=== PATIENT | male | born 1950 | race Caucasian/White ===

== ENCOUNTER 2018-06-15 14:54 | Inpatient (IN) | payer MEDICARE, OTHER ==
[2018-06-15 15:57] LABS: % BASOPHILS 0.4 % (0.0-2.0); % EOSINOPHILS 5.4 % (0.0-5.0); % LYMPHOCYTES 15.7 % (20.0-50.0); % MONOCYTES 10.1 % (2.0-10.0); % NEUTROPHILS 68.4 % (40.0-80.0); EOSINOPHILE ABSOLUTE 0.4 Th/cmm (0.1-0.4); HEMATOCRIT 43.8 % (41.0-60); HEMOGLOBIN 14.8 gm/dL (12-16); MEAN CELL VOLUME 91.1 fl (80-99); MEAN CORPUSCULAR HEMOGLOBIN 30.7 pg (27.0-31.0); MEAN CORPUSCULAR HGB CONC 33.7 pg (28.0-36.0); MEAN PLATELET VOLUME 6.9 fl; MONOCYTE ABSOLUTE 0.7 Th/cmm (0.3-1.0); NEUTROPHILE ABSOLUTE 4.4 Th/cmm (1.8-8.0); PLATELET COUNT 259 Th/cmm (150-400); RED BLOOD COUNT 4.81 Mil/cmm (3.80-5.80); RED CELL DISTRIBUTION WIDTH 13.2 % (11.5-20.0); WHITE BLOOD COUNT 6.5 Th/cmm (4.8-10.8)
[2018-06-15 16:14] LABS: INR 0.94 (0.5-1.4); PROTHROMBIN TIME (TEST) 9.8 SECONDS (9.5-11.5)
[2018-06-15 16:17] LABS: ALB/GLOB RATIO 1.1 (1.0-1.8); ALKALINE PHOSPHATASE 72 U/L (34-104); ANION GAP 14.3 (7.0-16.0); BILIRUBIN,TOTAL 1.1 mg/dL (0.3-1.0); BUN - UREA NITROGEN 15 mg/dL (7-25); CALCIUM SERUM 9.5 mg/dL (8.6-10.3); CARBON DIOXIDE 20.5 mEq/L (21.0-31.0); CHLORIDE 105 mEq/L (98-107); GFR AFRICAN-AMERICAN > 60.0 ml/min (>90); GFR NON AFRICAN-AMERICAN > 60.0 ml/min; GLUCOSE 93 mg/dL (70-105); POTASSIUM SERUM 3.8 mEq/L (3.5-5.1); SGOT 12 U/L (13-39); SGPT/ALT 6 U/L (7-52); SODIUM SERUM 136 mEq/L (136-145); TOTAL PROTEIN,SERUM 7.5 gm/dL (6.0-8.3)
[2018-06-15 16:35] LABS: URINE SOURCE CLEAN C
[2018-06-15 16:36] LABS: URINE BILIRUBIN NEGATIVE (NEGATIVE); URINE BLOOD LARGE (NEGATIVE); URINE GLUCOSE (UA) NEGATIVE (NEGATIVE); URINE KETONE NEGATIVE (NEGATIVE); URINE LEUKOCYTE ESTERASE TRACE (NEGATIVE); URINE MICROSCOPIC INDICATED? YES; URINE NITRATE NEGATIVE (NEGATIVE); URINE PH 6.5 (4.6 - 8.0); URINE PROTEIN 100 mg/dL (NEGATIVE); URINE UROBILINOGEN 0.2 E.U./dL (0.2 - 1.0)
--- NOTE | 2018-06-15 16:38 | ED Physician Chart ---
ED Chief Complaint/HPI - Patient Information Date Seen:: 06/15/18 Time Seen:: 15:20 Chief Complaint:: bloody urine History of Present Illness:: this is a 68 yr old male who has not been able to function well enough to stay healthy with depression, poor feeding, weight loss and now confused constantly. his sister brought him from home. he has a history of a renal tumor. Allergies:: Allergies Allergy/AdvReac Type Severity Reaction Status Date / Time No Known Allergies Allergy Verified 06/15/18 15:12 Vitals:: Vital Signs - 8 hr 06/15/18 15:13 Temp 96.2 F HR 65 RR 16 BP 160/75 O2 Sat % 97 Historian:: Patient, Family Member (sisters) Review:: Nurse's Note Reviewed ED Review of Systems - Review of Systems General/Constitutional: No fever, No chills, Weight loss, Weakness, No diaphoresis, No edema, Loss of appetite Skin: No skin lesions, No rash, No bruising Head: No headache, No light-headedness Eyes: No loss of vision, No pain, No diplopia ENT: No earache, No nasal drainage, No sore throat, No tinnitus Neck: No neck pain, No swelling, No thyromegaly, No stiffness, No mass noted Cardio Vascular: No chest pain, No palpitations, No PND, No orthopnea, No edema Pulmonary: No SOB, No cough, No sputum, No wheezing GI: No nausea, No vomiting, No diarrhea, No pain, No melena, No hematochezia, No constipation, No hematemesis G/U: No dysuria, No frequency, Hematuria Musculoskeletal: No bone or joint pain, No back pain, No muscle pain Endocrine: No polyuria, No polydipsia Psychiatric: Prior psych history, Depression, No anxiety, No suicidal ideation Hematopoietic: No bruising, No lymphadenopathy Allergic/Immuno: No urticaria, No angioedema Neurological: No syncope, No focal symptoms, No weakness, No paresthesia, No headache, No seizure, No dizziness, Confusion, No vertigo ED Past Medical History - Past Medical History Obtainable: Yes Past Medical History: Asthma/COPD, Dementia Family History: None Social History: Smoker, No Alcohol, No Drug Use, Lives Alone Surgical History: other (surgery for bladder cancer.) Family Medical History - Family Member Sister History Unknown: Yes Living Status: Still Living ED Physical Exam - Physical Examination General/Constitutional: Awake, Well-developed, well-nourished, Alert, No distress, GCS 15, Non-toxic appearing, Ambulatory Other Gen/Cons comments:: confused Head: Atraumatic Eyes: Lids, conjuctiva normal, PERRL, EOMI Skin: Nl inspection, No rash, No skin lesions, No ecchymosis, Well hydrated, No lymphadenopathy ENMT: External ears, nose nl, Nasal exam nl, Lips, teeth, gums nl Neck: Nontender, Full ROM w/o pain, No JVD, No nuchal rigidity, No bruit, No mass, No stridor Respiratory: Nl effort/Exclusion, Clear to Auscultation, No Wheeze/Rhonchi/Rales Cardio Vascular: RRR, No murmur, gallop, rubs, NL S1 S2 GI: No tenderness/rebounding/guarding, No organomegaly, No hernia, Normal BS's, Nondistended, No mass/bruits, No McBurney tenderness : No CVA tenderness Extremities: No tenderness or effusion, Full ROM, normal strength in all extremities, No edema, Normal digits & nails Neuro/Psych: Alert/oriented, DTR's symmetric, Normal sensory exam, Normal motor strength, Judgement/insight normal, Mood normal, Normal gait, No focal deficits Misc: Normal back, No paraspinal tenderness ED Labs/Radiology/EKG Results - Lab Results Results: Laboratory Tests 06/15/18 06/15/18 06/15/18 15:40 15:40 15:40 WBC 6.5 RBC 4.81 Hgb 14.8 Hct 43.8 MCV 91.1 MCH 30.7 MCHC Differential 33.7 RDW 13.2 Plt Count 259 MPV 6.9 Neutrophils % 68.4 Lymphocytes % 15.7 L Monocytes % 10.1 H Eosinophils % 5.4 H Basophils % 0.4 PT 9.8 INR 0.94 PTT (Actin FS) 27.9 Sodium 136 Potassium 3.8 Chloride 105 Carbon Dioxide 20.5 L Anion Gap 14.3 BUN 15 Creatinine 1.0 Est GFR ( Amer) > 60.0 Est GFR (Non-Af Amer) > 60.0 BUN/Creatinine Ratio 15.0 Glucose 93 Calcium 9.5 Total Bilirubin 1.1 H AST 12 L ALT 6 L Alkaline Phosphatase 72 Troponin I Total Protein 7.5 Albumin 4.0 L Globulin 3.5 Albumin/Globulin Ratio 1.1 06/15/18 15:40 WBC RBC Hgb Hct MCV MCH MCHC Differential RDW Plt Count MPV Neutrophils % Lymphocytes % Monocytes % Eosinophils % Basophils % PT INR PTT (Actin FS) Sodium Potassium Chloride Carbon Dioxide Anion Gap BUN Creatinine Est GFR ( Amer) Est GFR (Non-Af Amer) BUN/Creatinine Ratio Glucose Calcium Total Bilirubin AST ALT Alkaline Phosphatase Troponin I < 0.01 L Total Protein Albumin Globulin Albumin/Globulin Ratio - Radiology Results Results: chest x-ray = nad - EKG Interpretations EKG Time:: 15:37 Rate & Rhythm: rate=68, sinus Hubbard: left axis Intervals: no ectopy seen ED Assessment - Assessment General Assessment: hematuria bladder cancer dementia ED Septic Shock - . Is Septic Shock (SBP<90, OR Lactate>4 mmol\L) present?: No - <6hrs of presentation: Vital Signs: Vital Signs - 8 hr 06/15/18 15:13 Temp 96.2 F HR 65 RR 16 BP 160/75 O2 Sat % 97 ED Reassessment (Disposition) - Reassessment Reassessment Condition:: Unchanged - Diagnosis Diagnosis:: hematuria bladder cancer dementia urinary tract infection - Patient Disposition Discharge/Transfer:: Acute Care w/in this hosp Admitting Medical Physician:: Lona Gold Condition at Disposition:: Stable
[2018-06-15 16:56] LABS: URINE CLARITY HAZY (CLEAR); URINE COLOR RED
[2018-06-15 16:58] LABS: URINE EPITHELIAL CELLS NONE SEEN /lpf (FEW); URINE WBC 50-100 /hpf (0-5)
[2018-06-15 17:00] LABS: URINE BACTERIA MODERATE /hpf (NONE SEEN)
[2018-06-15 22:26] VITALS: BP 132/66
[2018-06-15] MEDS: D5-0.45NS 1,000 ML IV SCH (23:57)
[2018-06-16 06:03] LABS: % BASOPHILS 0.5 % (0.0-2.0); % LYMPHOCYTES 17.3 % (20.0-50.0); % MONOCYTES 11.3 % (2.0-10.0); % NEUTROPHILS 61.9 % (40.0-80.0); EOSINOPHILE ABSOLUTE 0.5 Th/cmm (0.1-0.4); HEMATOCRIT 41.5 % (41.0-60); MEAN CELL VOLUME 91.7 fl (80-99); MEAN CORPUSCULAR HEMOGLOBIN 30.8 pg (27.0-31.0); MEAN CORPUSCULAR HGB CONC 33.6 pg (28.0-36.0); MEAN PLATELET VOLUME 7.4 fl; MONOCYTE ABSOLUTE 0.6 Th/cmm (0.3-1.0); NEUTROPHILE ABSOLUTE 3.4 Th/cmm (1.8-8.0); PLATELET COUNT 248 Th/cmm (150-400); RED BLOOD COUNT 4.53 Mil/cmm (3.80-5.80); RED CELL DISTRIBUTION WIDTH 13.3 % (11.5-20.0); WHITE BLOOD COUNT 5.5 Th/cmm (4.8-10.8)
[2018-06-16 06:35] LABS: ANION GAP 10.1 (7.0-16.0); BUN - UREA NITROGEN 15 mg/dL (7-25); CALCIUM SERUM 9.3 mg/dL (8.6-10.3); CARBON DIOXIDE 25.9 mEq/L (21.0-31.0); CHLORIDE 108 mEq/L (98-107); CREATININE - SERUM 1.2 mg/dL (0.7-1.3); GFR AFRICAN-AMERICAN > 60.0 ml/min (>90); GFR NON AFRICAN-AMERICAN > 60.0 ml/min; GLUCOSE 95 mg/dL (70-105); SODIUM SERUM 140 mEq/L (136-145)
--- NOTE | 2018-06-16 09:18 | Diagnostic Imaging Report ---
Chest x-ray single view History: Cough Comparison: None The heart size is normal. No focal pulmonary parenchymal processes. No hilar or mediastinal abnormalities. Old fracture left clavicle. Impression: No acute abnormalities
--- NOTE | 2018-06-16 16:23 | History & Physical ---
ADMIT DATE: 06/15/2018 HISTORY OF PRESENT ILLNESS: The patient is a 68-year-old male patient, apparently brought ____ not able to feed himself, failure to thrive, weight loss, confused and also having hematuria. The patient has a history of bladder cancer and the patient is confused, difficult to obtain history from him. REVIEW OF SYSTEMS: Otherwise, negative. PAST MEDICAL HISTORY: Has a history of asthma, history of COPD, history of dementia. As I said before, he had a history of bladder cancer. PHYSICAL EXAMINATION: GENERAL: The patient is awake, alert and not in acute distress. VITAL SIGNS: Noted in the chart. HEAD: Normal. ENT: Normal. LUNGS: Clear. CARDIOVASCULAR SYSTEM: S1 and S2 heard. ABDOMEN: Soft. Bowel sounds are heard. LABORATORY DATA: Hemoglobin was 14.8, hematocrit was 43 and his white count was okay. DIAGNOSTIC DATA: A chest x-ray was normal sinus rhythm. EKG was normal sinus rhythm. DIAGNOSES: 1. Encephalopathy. 2. Confusion. 3. History of bladder cancer. 4. History of dementia. 5. Hematuria. 6. Rule out urinary tract infection. 7. History of asthma and chronic obstructive pulmonary disease. PLAN: The patient will be admitted. IV antibiotics and Neurology consult as well as [facility] to see the patient for the ID. JOB# [id number]
[2018-06-16] MEDS: cefTRIAXone 1 GM in Sodium Chloride 0.9% 50 ML IV SCH (16:30)
--- NOTE | 2018-06-17 01:15 | Consultation ---
DATE OF CONSULTATION: 06/16/2018 INFECTIOUS DISEASE CONSULTATION REFERRING PHYSICIAN: Dr. Gold. REASON FOR CONSULTATION: Urinary tract infection, hematuria. HISTORY OF PRESENT ILLNESS: The patient is 68-year-old male with a past medical history of bladder CA, status post TURP, incontinence of urine, COPD, dementia, nicotine dependence, brought in by family for hematuria. On initial evaluation, the patient's temperature was 96.2 degrees Fahrenheit and WBC count was 6500. Urinalysis showed pyuria and bacteriuria. ID consult was called for further antibiotic management. PAST MEDICAL HISTORY: Includes bladder CA versus prostate CA versus renal CA. Asthma, COPD, dementia. SOCIAL HISTORY: The patient lives at home as an active smoker. Denies alcohol or drug use. PAST SURGICAL HISTORY: Includes surgery for bladder cancer or TURP. FAMILY HISTORY: Not significant. REVIEW OF SYSTEMS: GENERAL: The patient has no fever, no chills, no weakness. HEENT: No diplopia, no photophobia, no sore throat, no earache. RESPIRATORY: The patient has no cough, no shortness of breath. CARDIOVASCULAR: No chest pain or palpitation. GASTROINTESTINAL: No nausea, no vomiting, no diarrhea, no constipation. GENITOURINARY: No dysuria. The patient has incontinence of urine. NEUROLOGIC: No headache, no dizziness, no focal weakness. PHYSICAL EXAMINATION: VITAL SIGNS: Shows temperature 98.5, pulse 70, respiration 18, blood pressure 128/71. GENERAL: The patient is comfortable, lying in the bed, not in acute distress. HEENT: Head is normocephalic, atraumatic. Oral cavity moist, pink tongue. Eyes: Pallor is present, no icterus. PERRLA, EOMI. NECK: Supple, no JVD, no carotid bruit. Trachea is midline. CHEST: Bilateral breath sounds. No crackles or wheezing. HEART: S1, S2 within normal limits. Regular rhythm. No murmur or gallop. ABDOMEN: Soft, nontender, nondistended. Bowel sounds present. EXTREMITIES: No cyanosis, no clubbing, no edema. NEUROLOGIC: Alert, awake, oriented x 3. LABORATORY DATA: Current lab shows WBC count is 5500, hemoglobin 14, hematocrit 41.5, platelets are 240,000, neutrophils 62%. INR 0.94. Sodium is 140, potassium 4, chloride 108, bicarbonate is 26, BUN is 15, creatinine 1.2, and glucose is 95. Urinalysis; wbc 50-100 and moderate bacteria. IMPRESSION: 1. Urinary tract infection. 2. Chronic obstructive pulmonary disease. Chest x-ray is nonreactive. RECOMMENDATION AND PLAN: Continue Rocephin at this time and follow renal ultrasound. Thank you, Dr. Gold for involving me in taking care of this patient. JOB# [id number]
[2018-06-17 06:34] LABS: % BASOPHILS 0.5 % (0.0-2.0); % EOSINOPHILS 2.5 % (0.0-5.0); % MONOCYTES 9.4 % (2.0-10.0); % NEUTROPHILS 74.6 % (40.0-80.0); EOSINOPHILE ABSOLUTE 0.2 Th/cmm (0.1-0.4); HEMOGLOBIN 14.3 gm/dL (12-16); LYMPHOCYTE ABSOLUTE 0.9 Th/cmm (1.5-3.0); MEAN CELL VOLUME 90.5 fl (80-99); MEAN CORPUSCULAR HGB CONC 33.2 pg (28.0-36.0); MEAN PLATELET VOLUME 6.9 fl; MONOCYTE ABSOLUTE 0.6 Th/cmm (0.3-1.0); NEUTROPHILE ABSOLUTE 4.9 Th/cmm (1.8-8.0); PLATELET COUNT 264 Th/cmm (150-400); RED BLOOD COUNT 4.75 Mil/cmm (3.80-5.80); RED CELL DISTRIBUTION WIDTH 13.1 % (11.5-20.0); WHITE BLOOD COUNT 6.6 Th/cmm (4.8-10.8)
[2018-06-17 06:49] LABS: ALB/GLOB RATIO 1.1 (1.0-1.8); ALKALINE PHOSPHATASE 73 U/L (34-104); ANION GAP 12.5 (7.0-16.0); BILIRUBIN,TOTAL 1.1 mg/dL (0.3-1.0); BUN - UREA NITROGEN 20 mg/dL (7-25); CALCIUM SERUM 9.6 mg/dL (8.6-10.3); CARBON DIOXIDE 24.1 mEq/L (21.0-31.0); CHLORIDE 107 mEq/L (98-107); CREATININE - SERUM 1.3 mg/dL (0.7-1.3); GFR AFRICAN-AMERICAN > 60.0 ml/min (>90); GFR NON AFRICAN-AMERICAN 58.2 ml/min; GLUCOSE 97 mg/dL (70-105); POTASSIUM SERUM 3.6 mEq/L (3.5-5.1); SGOT 17 U/L (13-39); SGPT/ALT 10 U/L (7-52); SODIUM SERUM 140 mEq/L (136-145); TOTAL PROTEIN,SERUM 7.5 gm/dL (6.0-8.3)
--- NOTE | 2018-06-17 09:09 | Diagnostic Imaging Report ---
Renal ultrasound HISTORY: Urinary tract infection, bladder cancer The exam is very limited due to patient combativeness and lack of cooperation. Positioning difficult. The right kidney measures approximately 10.5 x 6 x 1 x 5.3 cm. There are findings suggesting severe hydronephrosis. Renal cysts cannot be definitely excluded. A CT examination provide additional anatomic evaluation. The left kidney measures approximately 12.0 x 6.0 x 5.9 cm. No focal lesions or hydronephrosis. The exam of the urinary bladder demonstrates a thickened irregular wall in the lower region. IMPRESSION: 1. Very limited/suboptimal exam due to patient combativeness, lack of cooperation, and difficulty in positioning. 2. Findings suggesting severe right-sided hydronephrosis. Renal cysts cannot be excluded. A CT scan provide additional assessment and differentiation. 3. Abnormal thickened irregular urinary bladder wall. The findings should be correlated clinically and with patient history.
--- NOTE | 2018-06-17 13:03 | Internal Medicine Prog Note ---
Internal Medicine Subjective - Subjective Patient is:: awake, confused, other (weak admmitted with failure to thrive, weight loss, hematuria ) Patient Complaints of:: other (weakness) Per staff patient has:: no adverse event Internal Medicine Objective - Results Result Diagrams: 06/17/18 05:40 06/17/18 05:40 Recent Labs: Laboratory Last Values WBC 6.6 Th/cmm (4.8-10.8) 06/17/18 05:40 RBC 4.75 Mil/cmm (3.80-5.80) 06/17/18 05:40 Hgb 14.3 gm/dL (12-16) 06/17/18 05:40 Hct 43.0 % (41.0-60) 06/17/18 05:40 MCV 90.5 fl (80-99) 06/17/18 05:40 MCH 30.0 pg (27.0-31.0) 06/17/18 05:40 MCHC Differential 33.2 pg (28.0-36.0) 06/17/18 05:40 RDW 13.1 % (11.5-20.0) 06/17/18 05:40 Plt Count 264 Th/cmm (150-400) 06/17/18 05:40 MPV 6.9 fl 06/17/18 05:40 Neutrophils % 74.6 % (40.0-80.0) 06/17/18 05:40 Lymphocytes % 13.0 % (20.0-50.0) L 06/17/18 05:40 Monocytes % 9.4 % (2.0-10.0) 06/17/18 05:40 Eosinophils % 2.5 % (0.0-5.0) 06/17/18 05:40 Basophils % 0.5 % (0.0-2.0) 06/17/18 05:40 PT 9.8 SECONDS (9.5-11.5) 06/15/18 15:40 INR 0.94 (0.5-1.4) 06/15/18 15:40 PTT (Actin FS) 27.9 SECONDS (26.0-38.0) 06/15/18 15:40 Sodium 140 mEq/L (136-145) 06/17/18 05:40 Potassium 3.6 mEq/L (3.5-5.1) 06/17/18 05:40 Chloride 107 mEq/L (98-107) 06/17/18 05:40 Carbon Dioxide 24.1 mEq/L (21.0-31.0) 06/17/18 05:40 Anion Gap 12.5 (7.0-16.0) 06/17/18 05:40 BUN 20 mg/dL (7-25) 06/17/18 05:40 Creatinine 1.3 mg/dL (0.7-1.3) 06/17/18 05:40 Est GFR ( Amer) > 60.0 ml/min (>90) 06/17/18 05:40 Est GFR (Non-Af Amer) 58.2 ml/min 06/17/18 05:40 BUN/Creatinine Ratio 15.4 06/17/18 05:40 Glucose 97 mg/dL (70-105) 06/17/18 05:40 Whole Bld Lactic Acid 0.59 mmol/L (0.60-1.99) L 06/15/18 15:40 Calcium 9.6 mg/dL (8.6-10.3) 06/17/18 05:40 Total Bilirubin 1.1 mg/dL (0.3-1.0) H 06/17/18 05:40 AST 17 U/L (13-39) 06/17/18 05:40 ALT 10 U/L (7-52) 06/17/18 05:40 Alkaline Phosphatase 73 U/L (34-104) 06/17/18 05:40 Troponin I < 0.01 ng/mL (0.01-0.05) L 06/15/18 15:40 Total Protein 7.5 gm/dL (6.0-8.3) 06/17/18 05:40 Albumin 4.0 gm/dL (4.2-5.5) L 06/17/18 05:40 Globulin 3.5 gm/dL 06/17/18 05:40 Albumin/Globulin Ratio 1.1 (1.0-1.8) 06/17/18 05:40 TSH 1.58 uIU/ml (0.34-5.60) 06/15/18 15:40 Urine Source CLEAN C 06/15/18 16:00 Urine Color RED 06/15/18 16:00 Urine Clarity HAZY (CLEAR) 06/15/18 16:00 Urine pH 6.5 (4.6 - 8.0) 06/15/18 16:00 Ur Specific [place] <= 1.005 (1.005-1.030) 06/15/18 16:00 Urine Protein 100 mg/dL (NEGATIVE) H 06/15/18 16:00 Urine Glucose (UA) NEGATIVE mg/dL (NEGATIVE) 06/15/18 16:00 Urine Ketones NEGATIVE mg/dL (NEGATIVE) 06/15/18 16:00 Urine Blood LARGE (NEGATIVE) H 06/15/18 16:00 Urine Nitrate NEGATIVE (NEGATIVE) 06/15/18 16:00 Urine Bilirubin NEGATIVE (NEGATIVE) 06/15/18 16:00 Urine Urobilinogen 0.2 E.U./dL (0.2 - 1.0) 06/15/18 16:00 Ur Leukocyte Esterase TRACE (NEGATIVE) H 06/15/18 16:00 Urine RBC 2-5 /hpf (0-5) H 06/15/18 16:00 Urine WBC 50-100 /hpf (0-5) H 06/15/18 16:00 Ur Epithelial Cells NONE SEEN /lpf (FEW) 06/15/18 16:00 Urine Bacteria MODERATE /hpf (NONE SEEN) H 06/15/18 16:00 - Physical Exam Vitals and I&O: Vital Signs Temp 97.9 F 06/17/18 04:00 Pulse 88 06/17/18 04:00 Resp 18 06/17/18 08:00 BP 140/66 06/17/18 04:00 Pulse Ox 97 06/17/18 04:00 Intake & Output 06/16/18 06/17/18 06/17/18 18:59 06:59 18:59 Intake Total 460 100 Balance 460 100 Weight (lbs) 79.379 kg 79.379 kg Intake: Oral 460 100 Other: # Voids 2 Weight Source Bedscale Bedscale Active Medications: Current Medications Dextrose/Sodium Chloride (D5-0.45ns) 1,000 mls @ 50 mls/hr IV .Q20H SHAMEKA Stop: 08/14/18 22:17 Last Admin: 06/15/18 23:57 Dose: 50 mls/hr Ceftriaxone Sodium 1 gm/ (Sodium Chloride) 50 mls @ 100 mls/hr IV Q24HR SHAMEKA Stop: 08/15/18 14:59 Last Admin: 06/16/18 16:30 Dose: 100 mls/hr Ibuprofen (Motrin) 600 mg PO Q6HR PRN PRN Reason: Pain (Moderate) Stop: 08/15/18 05:31 Lorazepam (Ativan) 1 mg IM Q4HR PRN; Protocol PRN Reason: Agitation Stop: 08/15/18 12:55 Last Admin: 06/17/18 09:11 Dose: 1 mg General: weak, other (confused) HEENT: NC/AT Neck: Supple Lungs: CTAB Cardiovascular: RRR, Normal S1, Normal S2 Abdomen: soft, non-tender Extremities: clear Neurological: no change Internal Medicine Assmt/Plan - Assessment Assessment: encephalopathy confusion hematuria h/obladder ca h/o dementia h/o asthma h/o copd - Plan Plan: iv antibiotics neuro eval as per order sheet
--- NOTE | 2018-06-17 17:53 | Consultation ---
DATE OF CONSULTATION: 06/17/2018 REASON FOR CONSULTATION: Seen for history of hematuria and history of bladder cancer. INDICATIONS: The patient is a 68-year-old long-term resident, who was sent to the Emergency Room with depression, poor feeding, weight loss and confusion. He also has some sort of psychiatric history that is not well defined. ALLERGIES: None. REVIEW OF SYSTEMS: No fever reported, but weight loss, positive. No headache or seizures noted. No record of swallowing difficulty or vision change. Denied headache. Denies chest pain, coughing, or shortness of breath. No abdominal pain, vomiting or diarrhea and noticed urea but hematuria was noted by somebody, but not noted here by the nurse since admission. No skin or joint problems reported. PAST MEDICAL HISTORY: Positive for asthma and COPD. He has a history of dementia as well and there is a question of bladder cancer versus kidney cancer. HOME MEDICATIONS: Listed are only ibuprofen. PHYSICAL EXAMINATION: GENERAL: On exam, he is awake and alert and confused. He was complaining about some nursing issues. VITAL SIGNS: Temperature 97.9, heart rate 88, blood pressure 140/66. He is requiring a sitter because he does tend to get out of bed and pull on his IV, etc. HEAD AND NECK: Normocephalic. Trachea central. Pupils equal and reactive. No jaundice. Thyroid and lymph nodes not palpable. Carotid bruit absent. CHEST: Symmetrical. LUNGS: Clear. No rales or rhonchi. HEART: Sounds normal, in sinus rhythm, no murmur. ABDOMEN: Soft, nontender, no organomegaly, mass, or hernia. GENITALIA AND RECTAL: Not done and deferred later. EXTREMITIES: No edema or lymphadenopathy. NEUROLOGIC: Nonfocal. Higher functions are not normal with possibility of confusion versus dementia versus psychiatric disorder. LABORATORY DATA: White count 6.6, hemoglobin 14.3, both have been stable since admission, platelets are normal. PT and PTT are normal. Electrolytes are normal. BUN 20, creatinine 1.0 on admission, today 1.3. Lactic acid normal on admission, bilirubin 1.1. Liver functions unremarkable. Urinalysis showed large amount of blood with a few red cells and 50-100 white cells, bacteria moderate. Blood cultures are negative and urine culture is showing no growth. Renal ultrasound shows right hydronephrosis and a thickened urinary bladder as well, but is a suboptimal study as the patient was not cooperative. Chest x-ray is unremarkable. IMPRESSION: History of hematuria. No infection and possibility of bladder cancer. Recommend a cystoscopy, possible bladder biopsy and bladder tumor resection and right retrograde pyelogram. We will obtain consent and medical clearance and schedule accordingly. History of altered level of consciousness versus dementia and recent weight loss or other comorbidities, which are being addressed by the various consultants. JOB# [id number]
[2018-06-17] MEDS: cefTRIAXone 1 GM in Sodium Chloride 0.9% 50 ML IV SCH (18:16)
[2018-06-17] MEDS: D5-0.45NS 1,000 ML IV SCH (18:32)
--- NOTE | 2018-06-18 01:32 | Infectious Disease Prog Note ---
Infectious Disease Subjective - Review of Systems Service Date: 06/17/18 Subjective: doing well. Infectious Disease Objective - Results Result Diagrams: 06/17/18 05:40 06/17/18 05:40 Recent Labs: Laboratory Last Values WBC 6.6 Th/cmm (4.8-10.8) 06/17/18 05:40 RBC 4.75 Mil/cmm (3.80-5.80) 06/17/18 05:40 Hgb 14.3 gm/dL (12-16) 06/17/18 05:40 Hct 43.0 % (41.0-60) 06/17/18 05:40 MCV 90.5 fl (80-99) 06/17/18 05:40 MCH 30.0 pg (27.0-31.0) 06/17/18 05:40 MCHC Differential 33.2 pg (28.0-36.0) 06/17/18 05:40 RDW 13.1 % (11.5-20.0) 06/17/18 05:40 Plt Count 264 Th/cmm (150-400) 06/17/18 05:40 MPV 6.9 fl 06/17/18 05:40 Neutrophils % 74.6 % (40.0-80.0) 06/17/18 05:40 Lymphocytes % 13.0 % (20.0-50.0) L 06/17/18 05:40 Monocytes % 9.4 % (2.0-10.0) 06/17/18 05:40 Eosinophils % 2.5 % (0.0-5.0) 06/17/18 05:40 Basophils % 0.5 % (0.0-2.0) 06/17/18 05:40 PT 9.8 SECONDS (9.5-11.5) 06/15/18 15:40 INR 0.94 (0.5-1.4) 06/15/18 15:40 PTT (Actin FS) 27.9 SECONDS (26.0-38.0) 06/15/18 15:40 Sodium 140 mEq/L (136-145) 06/17/18 05:40 Potassium 3.6 mEq/L (3.5-5.1) 06/17/18 05:40 Chloride 107 mEq/L (98-107) 06/17/18 05:40 Carbon Dioxide 24.1 mEq/L (21.0-31.0) 06/17/18 05:40 Anion Gap 12.5 (7.0-16.0) 06/17/18 05:40 BUN 20 mg/dL (7-25) 06/17/18 05:40 Creatinine 1.3 mg/dL (0.7-1.3) 06/17/18 05:40 Est GFR ( Amer) > 60.0 ml/min (>90) 06/17/18 05:40 Est GFR (Non-Af Amer) 58.2 ml/min 06/17/18 05:40 BUN/Creatinine Ratio 15.4 06/17/18 05:40 Glucose 97 mg/dL (70-105) 06/17/18 05:40 Whole Bld Lactic Acid 0.59 mmol/L (0.60-1.99) L 06/15/18 15:40 Calcium 9.6 mg/dL (8.6-10.3) 06/17/18 05:40 Total Bilirubin 1.1 mg/dL (0.3-1.0) H 06/17/18 05:40 AST 17 U/L (13-39) 06/17/18 05:40 ALT 10 U/L (7-52) 06/17/18 05:40 Alkaline Phosphatase 73 U/L (34-104) 06/17/18 05:40 Troponin I < 0.01 ng/mL (0.01-0.05) L 06/15/18 15:40 Total Protein 7.5 gm/dL (6.0-8.3) 06/17/18 05:40 Albumin 4.0 gm/dL (4.2-5.5) L 06/17/18 05:40 Globulin 3.5 gm/dL 06/17/18 05:40 Albumin/Globulin Ratio 1.1 (1.0-1.8) 06/17/18 05:40 TSH 1.58 uIU/ml (0.34-5.60) 06/15/18 15:40 Urine Source CLEAN C 06/15/18 16:00 Urine Color RED 06/15/18 16:00 Urine Clarity HAZY (CLEAR) 06/15/18 16:00 Urine pH 6.5 (4.6 - 8.0) 06/15/18 16:00 Ur Specific [place] <= 1.005 (1.005-1.030) 06/15/18 16:00 Urine Protein 100 mg/dL (NEGATIVE) H 06/15/18 16:00 Urine Glucose (UA) NEGATIVE mg/dL (NEGATIVE) 06/15/18 16:00 Urine Ketones NEGATIVE mg/dL (NEGATIVE) 06/15/18 16:00 Urine Blood LARGE (NEGATIVE) H 06/15/18 16:00 Urine Nitrate NEGATIVE (NEGATIVE) 06/15/18 16:00 Urine Bilirubin NEGATIVE (NEGATIVE) 06/15/18 16:00 Urine Urobilinogen 0.2 E.U./dL (0.2 - 1.0) 06/15/18 16:00 Ur Leukocyte Esterase TRACE (NEGATIVE) H 06/15/18 16:00 Urine RBC 2-5 /hpf (0-5) H 06/15/18 16:00 Urine WBC 50-100 /hpf (0-5) H 06/15/18 16:00 Ur Epithelial Cells NONE SEEN /lpf (FEW) 06/15/18 16:00 Urine Bacteria MODERATE /hpf (NONE SEEN) H 06/15/18 16:00 - Physical Exam Vitals and I&O: Vital Signs Temp 98.2 F 06/18/18 00:00 Pulse 81 06/18/18 00:00 Resp 19 06/18/18 00:00 BP 125/78 06/18/18 00:00 Pulse Ox 96 06/18/18 00:00 Intake & Output 06/17/18 06/17/18 06/18/18 06:59 18:59 06:59 Intake Total 1100 600 50 Balance 1100 600 50 Weight (lbs) 79.379 kg 79.379 kg Intake: Intake, IV Amount 1000 50 D5-0.45NS 1,000 ml @ 50 1000 mls/hr IV .Q20H SHAMEKA Rx#: [id number] 1 gm In 50 Sodium Chloride 0.9% 50 ml @ 100 mls/hr IV Q24HR SHAMEKA Rx#:[id number] Oral 100 600 Other: # Voids 2 2 # Bowel Movements 0 Weight Source Bedscale Bedscale Active Medications: Current Medications Dextrose/Sodium Chloride (D5-0.45ns) 1,000 mls @ 50 mls/hr IV .Q20H SHAMEKA Stop: 08/14/18 22:17 Last Admin: 06/17/18 18:32 Dose: 50 mls/hr Ceftriaxone Sodium 1 gm/ (Sodium Chloride) 50 mls @ 100 mls/hr IV Q24HR SHAMEKA Stop: 08/15/18 14:59 Last Infusion: 06/17/18 22:24 Dose: Infused Ibuprofen (Motrin) 600 mg PO Q6HR PRN PRN Reason: Pain (Moderate) Stop: 08/15/18 05:31 Lorazepam (Ativan) 1 mg IM Q4HR PRN; Protocol PRN Reason: Agitation Stop: 08/15/18 12:55 Last Admin: 06/17/18 09:11 Dose: 1 mg General: no acute distress, well developed, well nourished HEENT: atraumatic, normocephalic, PERRLA, EOMI Neck: supple, no thyromegaly Cardiovascular: S1S2, regular Lungs: clear to auscultation bilaterally, clear to percussion Abdomen: soft, no tender, no distended Extremities: no cyanosis, no clubbing Neurological: awake, alert, oriented Skin: intact Infectious Disease Assmt/Plan - Assessment Assessment: 1. Urinary tract infection. 2. Chronic obstructive pulmonary disease. - Plan Plan: cpm.
--- NOTE | 2018-06-18 13:57 | Infectious Disease Prog Note ---
Infectious Disease Subjective - Review of Systems Service Date: 06/18/18 Subjective: doing well. Infectious Disease Objective - Results Result Diagrams: 06/17/18 05:40 06/17/18 05:40 Recent Labs: Laboratory Last Values WBC 6.6 Th/cmm (4.8-10.8) 06/17/18 05:40 RBC 4.75 Mil/cmm (3.80-5.80) 06/17/18 05:40 Hgb 14.3 gm/dL (12-16) 06/17/18 05:40 Hct 43.0 % (41.0-60) 06/17/18 05:40 MCV 90.5 fl (80-99) 06/17/18 05:40 MCH 30.0 pg (27.0-31.0) 06/17/18 05:40 MCHC Differential 33.2 pg (28.0-36.0) 06/17/18 05:40 RDW 13.1 % (11.5-20.0) 06/17/18 05:40 Plt Count 264 Th/cmm (150-400) 06/17/18 05:40 MPV 6.9 fl 06/17/18 05:40 Neutrophils % 74.6 % (40.0-80.0) 06/17/18 05:40 Lymphocytes % 13.0 % (20.0-50.0) L 06/17/18 05:40 Monocytes % 9.4 % (2.0-10.0) 06/17/18 05:40 Eosinophils % 2.5 % (0.0-5.0) 06/17/18 05:40 Basophils % 0.5 % (0.0-2.0) 06/17/18 05:40 PT 9.8 SECONDS (9.5-11.5) 06/15/18 15:40 INR 0.94 (0.5-1.4) 06/15/18 15:40 PTT (Actin FS) 27.9 SECONDS (26.0-38.0) 06/15/18 15:40 Sodium 140 mEq/L (136-145) 06/17/18 05:40 Potassium 3.6 mEq/L (3.5-5.1) 06/17/18 05:40 Chloride 107 mEq/L (98-107) 06/17/18 05:40 Carbon Dioxide 24.1 mEq/L (21.0-31.0) 06/17/18 05:40 Anion Gap 12.5 (7.0-16.0) 06/17/18 05:40 BUN 20 mg/dL (7-25) 06/17/18 05:40 Creatinine 1.3 mg/dL (0.7-1.3) 06/17/18 05:40 Est GFR ( Amer) > 60.0 ml/min (>90) 06/17/18 05:40 Est GFR (Non-Af Amer) 58.2 ml/min 06/17/18 05:40 BUN/Creatinine Ratio 15.4 06/17/18 05:40 Glucose 97 mg/dL (70-105) 06/17/18 05:40 Whole Bld Lactic Acid 0.59 mmol/L (0.60-1.99) L 06/15/18 15:40 Calcium 9.6 mg/dL (8.6-10.3) 06/17/18 05:40 Total Bilirubin 1.1 mg/dL (0.3-1.0) H 06/17/18 05:40 AST 17 U/L (13-39) 06/17/18 05:40 ALT 10 U/L (7-52) 06/17/18 05:40 Alkaline Phosphatase 73 U/L (34-104) 06/17/18 05:40 Troponin I < 0.01 ng/mL (0.01-0.05) L 06/15/18 15:40 Total Protein 7.5 gm/dL (6.0-8.3) 06/17/18 05:40 Albumin 4.0 gm/dL (4.2-5.5) L 06/17/18 05:40 Globulin 3.5 gm/dL 06/17/18 05:40 Albumin/Globulin Ratio 1.1 (1.0-1.8) 06/17/18 05:40 TSH 1.58 uIU/ml (0.34-5.60) 06/15/18 15:40 Urine Source CLEAN C 06/15/18 16:00 Urine Color RED 06/15/18 16:00 Urine Clarity HAZY (CLEAR) 06/15/18 16:00 Urine pH 6.5 (4.6 - 8.0) 06/15/18 16:00 Ur Specific [place] <= 1.005 (1.005-1.030) 06/15/18 16:00 Urine Protein 100 mg/dL (NEGATIVE) H 06/15/18 16:00 Urine Glucose (UA) NEGATIVE mg/dL (NEGATIVE) 06/15/18 16:00 Urine Ketones NEGATIVE mg/dL (NEGATIVE) 06/15/18 16:00 Urine Blood LARGE (NEGATIVE) H 06/15/18 16:00 Urine Nitrate NEGATIVE (NEGATIVE) 06/15/18 16:00 Urine Bilirubin NEGATIVE (NEGATIVE) 06/15/18 16:00 Urine Urobilinogen 0.2 E.U./dL (0.2 - 1.0) 06/15/18 16:00 Ur Leukocyte Esterase TRACE (NEGATIVE) H 06/15/18 16:00 Urine RBC 2-5 /hpf (0-5) H 06/15/18 16:00 Urine WBC 50-100 /hpf (0-5) H 06/15/18 16:00 Ur Epithelial Cells NONE SEEN /lpf (FEW) 06/15/18 16:00 Urine Bacteria MODERATE /hpf (NONE SEEN) H 06/15/18 16:00 - Physical Exam Vitals and I&O: Vital Signs Temp 97.9 F 06/18/18 13:51 Pulse 83 06/18/18 13:51 Resp 20 06/18/18 13:51 BP 125/75 06/18/18 13:51 Pulse Ox 96 06/18/18 13:51 Intake & Output 06/17/18 06/18/18 06/18/18 18:59 06:59 18:59 Intake Total 600 635.833 Balance 600 635.833 Weight (lbs) 79.379 kg Intake: Intake, IV Amount 635.833 D5-0.45NS 1,000 ml @ 50 585.833 mls/hr IV .Q20H [facility] Rx#: [id number] cefTRIAXone 1 gm In 50 Sodium Chloride 0.9% 50 ml @ 100 mls/hr IV Q24HR [facility] Rx#:[id number] Oral 600 Other: # Voids 2 # Bowel Movements 0 Weight Source Bedscale Active Medications: Current Medications Dextrose/Sodium Chloride (D5-0.45ns) 1,000 mls @ 50 mls/hr IV .Q20H [facility] Stop: 08/14/18 22:17 Last Infusion: 06/18/18 06:15 Dose: 50 mls/hr Ceftriaxone Sodium 1 gm/ (Sodium Chloride) 50 mls @ 100 mls/hr IV Q24HR [facility] Stop: 08/15/18 14:59 Last Infusion: 06/17/18 22:24 Dose: Infused Ibuprofen (Motrin) 600 mg PO Q6HR PRN PRN Reason: Pain (Moderate) Stop: 08/15/18 05:31 Lorazepam (Ativan) 1 mg IM Q4HR PRN; Protocol PRN Reason: Agitation Stop: 08/15/18 12:55 Last Admin: 06/18/18 11:13 Dose: 1 mg General: no acute distress, well developed, well nourished HEENT: atraumatic, normocephalic, PERRLA, EOMI Neck: supple, no thyromegaly Cardiovascular: S1S2, regular Lungs: clear to auscultation bilaterally, clear to percussion Abdomen: soft, no tender, no distended Extremities: no cyanosis, no clubbing, no edema Neurological: awake, alert, oriented Skin: intact Infectious Disease Assmt/Plan - Assessment Assessment: 1. Urinary tract infection. 2. Chronic obstructive pulmonary disease. - Plan Plan: cpm.
--- NOTE | 2018-06-18 14:00 | Infectious Disease Prog Note ---
Infectious Disease Subjective - Review of Systems Service Date: 06/18/18 Subjective: doing well. Infectious Disease Objective - Results Result Diagrams: 06/17/18 05:40 06/17/18 05:40 Recent Labs: Laboratory Last Values WBC 6.6 Th/cmm (4.8-10.8) 06/17/18 05:40 RBC 4.75 Mil/cmm (3.80-5.80) 06/17/18 05:40 Hgb 14.3 gm/dL (12-16) 06/17/18 05:40 Hct 43.0 % (41.0-60) 06/17/18 05:40 MCV 90.5 fl (80-99) 06/17/18 05:40 MCH 30.0 pg (27.0-31.0) 06/17/18 05:40 MCHC Differential 33.2 pg (28.0-36.0) 06/17/18 05:40 RDW 13.1 % (11.5-20.0) 06/17/18 05:40 Plt Count 264 Th/cmm (150-400) 06/17/18 05:40 MPV 6.9 fl 06/17/18 05:40 Neutrophils % 74.6 % (40.0-80.0) 06/17/18 05:40 Lymphocytes % 13.0 % (20.0-50.0) L 06/17/18 05:40 Monocytes % 9.4 % (2.0-10.0) 06/17/18 05:40 Eosinophils % 2.5 % (0.0-5.0) 06/17/18 05:40 Basophils % 0.5 % (0.0-2.0) 06/17/18 05:40 PT 9.8 SECONDS (9.5-11.5) 06/15/18 15:40 INR 0.94 (0.5-1.4) 06/15/18 15:40 PTT (Actin FS) 27.9 SECONDS (26.0-38.0) 06/15/18 15:40 Sodium 140 mEq/L (136-145) 06/17/18 05:40 Potassium 3.6 mEq/L (3.5-5.1) 06/17/18 05:40 Chloride 107 mEq/L (98-107) 06/17/18 05:40 Carbon Dioxide 24.1 mEq/L (21.0-31.0) 06/17/18 05:40 Anion Gap 12.5 (7.0-16.0) 06/17/18 05:40 BUN 20 mg/dL (7-25) 06/17/18 05:40 Creatinine 1.3 mg/dL (0.7-1.3) 06/17/18 05:40 Est GFR ( Amer) > 60.0 ml/min (>90) 06/17/18 05:40 Est GFR (Non-Af Amer) 58.2 ml/min 06/17/18 05:40 BUN/Creatinine Ratio 15.4 06/17/18 05:40 Glucose 97 mg/dL (70-105) 06/17/18 05:40 Whole Bld Lactic Acid 0.59 mmol/L (0.60-1.99) L 06/15/18 15:40 Calcium 9.6 mg/dL (8.6-10.3) 06/17/18 05:40 Total Bilirubin 1.1 mg/dL (0.3-1.0) H 06/17/18 05:40 AST 17 U/L (13-39) 06/17/18 05:40 ALT 10 U/L (7-52) 06/17/18 05:40 Alkaline Phosphatase 73 U/L (34-104) 06/17/18 05:40 Troponin I < 0.01 ng/mL (0.01-0.05) L 06/15/18 15:40 Total Protein 7.5 gm/dL (6.0-8.3) 06/17/18 05:40 Albumin 4.0 gm/dL (4.2-5.5) L 06/17/18 05:40 Globulin 3.5 gm/dL 06/17/18 05:40 Albumin/Globulin Ratio 1.1 (1.0-1.8) 06/17/18 05:40 TSH 1.58 uIU/ml (0.34-5.60) 06/15/18 15:40 Urine Source CLEAN C 06/15/18 16:00 Urine Color RED 06/15/18 16:00 Urine Clarity HAZY (CLEAR) 06/15/18 16:00 Urine pH 6.5 (4.6 - 8.0) 06/15/18 16:00 Ur Specific [place] <= 1.005 (1.005-1.030) 06/15/18 16:00 Urine Protein 100 mg/dL (NEGATIVE) H 06/15/18 16:00 Urine Glucose (UA) NEGATIVE mg/dL (NEGATIVE) 06/15/18 16:00 Urine Ketones NEGATIVE mg/dL (NEGATIVE) 06/15/18 16:00 Urine Blood LARGE (NEGATIVE) H 06/15/18 16:00 Urine Nitrate NEGATIVE (NEGATIVE) 06/15/18 16:00 Urine Bilirubin NEGATIVE (NEGATIVE) 06/15/18 16:00 Urine Urobilinogen 0.2 E.U./dL (0.2 - 1.0) 06/15/18 16:00 Ur Leukocyte Esterase TRACE (NEGATIVE) H 06/15/18 16:00 Urine RBC 2-5 /hpf (0-5) H 06/15/18 16:00 Urine WBC 50-100 /hpf (0-5) H 06/15/18 16:00 Ur Epithelial Cells NONE SEEN /lpf (FEW) 06/15/18 16:00 Urine Bacteria MODERATE /hpf (NONE SEEN) H 06/15/18 16:00 - Physical Exam Vitals and I&O: Vital Signs Temp 97.9 F 06/18/18 13:51 Pulse 83 06/18/18 13:51 Resp 20 06/18/18 13:51 BP 125/75 06/18/18 13:51 Pulse Ox 96 06/18/18 13:51 Intake & Output 06/17/18 06/18/18 06/18/18 18:59 06:59 18:59 Intake Total 600 635.833 Balance 600 635.833 Weight (lbs) 79.379 kg Intake: Intake, IV Amount 635.833 D5-0.45NS 1,000 ml @ 50 585.833 mls/hr IV .Q20H [facility] Rx#: [id number] cefTRIAXone 1 gm In 50 Sodium Chloride 0.9% 50 ml @ 100 mls/hr IV Q24HR [facility] Rx#:[id number] Oral 600 Other: # Voids 2 # Bowel Movements 0 Weight Source Bedscale Active Medications: Current Medications Dextrose/Sodium Chloride (D5-0.45ns) 1,000 mls @ 50 mls/hr IV .Q20H [facility] Stop: 08/14/18 22:17 Last Infusion: 06/18/18 06:15 Dose: 50 mls/hr Ceftriaxone Sodium 1 gm/ (Sodium Chloride) 50 mls @ 100 mls/hr IV Q24HR [facility] Stop: 08/15/18 14:59 Last Infusion: 06/17/18 22:24 Dose: Infused Ibuprofen (Motrin) 600 mg PO Q6HR PRN PRN Reason: Pain (Moderate) Stop: 08/15/18 05:31 Lorazepam (Ativan) 1 mg IM Q4HR PRN; Protocol PRN Reason: Agitation Stop: 08/15/18 12:55 Last Admin: 06/18/18 11:13 Dose: 1 mg General: no acute distress, well developed, well nourished HEENT: atraumatic, normocephalic, PERRLA, EOMI Neck: supple, no thyromegaly Cardiovascular: S1S2, regular Lungs: clear to auscultation bilaterally, clear to percussion Abdomen: soft, bowel sounds, no tender, no distended Extremities: no cyanosis, no clubbing, no edema Neurological: awake, alert, oriented Skin: intact Infectious Disease Assmt/Plan - Assessment Assessment: 1. Urinary tract infection complicated with right sided hydronephrosis. 2. Chronic obstructive pulmonary disease. 3. H/o bladder tumor - Plan Plan: cpm. Abx ceftriaxone,, can be changed to po cipro 250 mg po bid.
[2018-06-18] MEDS: D5-0.45NS 1,000 ML IV SCH (14:39)
[2018-06-18] MEDS: cefTRIAXone 1 GM in Sodium Chloride 0.9% 50 ML IV SCH (15:02)
--- NOTE | 2018-06-18 17:21 | Internal Medicine Prog Note ---
Internal Medicine Subjective - Subjective Service Date: 06/18/18 Patient is:: awake, confused, other (weak admmitted with failure to thrive, weight loss, hematuria ) Patient Complaints of:: other (weakness) Per staff patient has:: no adverse event Internal Medicine Objective - Results Result Diagrams: 06/17/18 05:40 06/17/18 05:40 Recent Labs: Laboratory Last Values WBC 6.6 Th/cmm (4.8-10.8) 06/17/18 05:40 RBC 4.75 Mil/cmm (3.80-5.80) 06/17/18 05:40 Hgb 14.3 gm/dL (12-16) 06/17/18 05:40 Hct 43.0 % (41.0-60) 06/17/18 05:40 MCV 90.5 fl (80-99) 06/17/18 05:40 MCH 30.0 pg (27.0-31.0) 06/17/18 05:40 MCHC Differential 33.2 pg (28.0-36.0) 06/17/18 05:40 RDW 13.1 % (11.5-20.0) 06/17/18 05:40 Plt Count 264 Th/cmm (150-400) 06/17/18 05:40 MPV 6.9 fl 06/17/18 05:40 Neutrophils % 74.6 % (40.0-80.0) 06/17/18 05:40 Lymphocytes % 13.0 % (20.0-50.0) L 06/17/18 05:40 Monocytes % 9.4 % (2.0-10.0) 06/17/18 05:40 Eosinophils % 2.5 % (0.0-5.0) 06/17/18 05:40 Basophils % 0.5 % (0.0-2.0) 06/17/18 05:40 PT 9.8 SECONDS (9.5-11.5) 06/15/18 15:40 INR 0.94 (0.5-1.4) 06/15/18 15:40 PTT (Actin FS) 27.9 SECONDS (26.0-38.0) 06/15/18 15:40 Sodium 140 mEq/L (136-145) 06/17/18 05:40 Potassium 3.6 mEq/L (3.5-5.1) 06/17/18 05:40 Chloride 107 mEq/L (98-107) 06/17/18 05:40 Carbon Dioxide 24.1 mEq/L (21.0-31.0) 06/17/18 05:40 Anion Gap 12.5 (7.0-16.0) 06/17/18 05:40 BUN 20 mg/dL (7-25) 06/17/18 05:40 Creatinine 1.3 mg/dL (0.7-1.3) 06/17/18 05:40 Est GFR ( Amer) > 60.0 ml/min (>90) 06/17/18 05:40 Est GFR (Non-Af Amer) 58.2 ml/min 06/17/18 05:40 BUN/Creatinine Ratio 15.4 06/17/18 05:40 Glucose 97 mg/dL (70-105) 06/17/18 05:40 Whole Bld Lactic Acid 0.59 mmol/L (0.60-1.99) L 06/15/18 15:40 Calcium 9.6 mg/dL (8.6-10.3) 06/17/18 05:40 Total Bilirubin 1.1 mg/dL (0.3-1.0) H 06/17/18 05:40 AST 17 U/L (13-39) 06/17/18 05:40 ALT 10 U/L (7-52) 06/17/18 05:40 Alkaline Phosphatase 73 U/L (34-104) 06/17/18 05:40 Troponin I < 0.01 ng/mL (0.01-0.05) L 06/15/18 15:40 Total Protein 7.5 gm/dL (6.0-8.3) 06/17/18 05:40 Albumin 4.0 gm/dL (4.2-5.5) L 06/17/18 05:40 Globulin 3.5 gm/dL 06/17/18 05:40 Albumin/Globulin Ratio 1.1 (1.0-1.8) 06/17/18 05:40 TSH 1.58 uIU/ml (0.34-5.60) 06/15/18 15:40 Urine Source CLEAN C 06/15/18 16:00 Urine Color RED 06/15/18 16:00 Urine Clarity HAZY (CLEAR) 06/15/18 16:00 Urine pH 6.5 (4.6 - 8.0) 06/15/18 16:00 Ur Specific [place] <= 1.005 (1.005-1.030) 06/15/18 16:00 Urine Protein 100 mg/dL (NEGATIVE) H 06/15/18 16:00 Urine Glucose (UA) NEGATIVE mg/dL (NEGATIVE) 06/15/18 16:00 Urine Ketones NEGATIVE mg/dL (NEGATIVE) 06/15/18 16:00 Urine Blood LARGE (NEGATIVE) H 06/15/18 16:00 Urine Nitrate NEGATIVE (NEGATIVE) 06/15/18 16:00 Urine Bilirubin NEGATIVE (NEGATIVE) 06/15/18 16:00 Urine Urobilinogen 0.2 E.U./dL (0.2 - 1.0) 06/15/18 16:00 Ur Leukocyte Esterase TRACE (NEGATIVE) H 06/15/18 16:00 Urine RBC 2-5 /hpf (0-5) H 06/15/18 16:00 Urine WBC 50-100 /hpf (0-5) H 06/15/18 16:00 Ur Epithelial Cells NONE SEEN /lpf (FEW) 06/15/18 16:00 Urine Bacteria MODERATE /hpf (NONE SEEN) H 06/15/18 16:00 - Physical Exam Vitals and I&O: Vital Signs Temp 98.9 F 06/18/18 16:01 Pulse 99 06/18/18 16:01 Resp 20 06/18/18 16:01 BP 136/80 06/18/18 16:01 Pulse Ox 96 06/18/18 16:01 Intake & Output 06/17/18 06/18/18 06/18/18 18:59 06:59 18:59 Intake Total 600 635.833 414.167 Balance 600 635.833 414.167 Weight (lbs) 175 lb Intake: Intake, IV Amount 635.833 414.167 D5-0.45NS 1,000 ml @ 50 585.833 414.167 mls/hr IV .Q20H [facility] Rx#: [id number] cefTRIAXone 1 gm In 50 Sodium Chloride 0.9% 50 ml @ 100 mls/hr IV Q24HR [facility] Rx#:[id number] Oral 600 Other: # Voids 2 # Bowel Movements 0 Weight Source Bedscale Active Medications: Current Medications Dextrose/Sodium Chloride (D5-0.45ns) 1,000 mls @ 50 mls/hr IV .Q20H [facility] Stop: 08/14/18 22:17 Last Admin: 06/18/18 14:39 Dose: 50 mls/hr Ceftriaxone Sodium 1 gm/ (Sodium Chloride) 50 mls @ 100 mls/hr IV Q24HR [facility] Stop: 08/15/18 14:59 Last Admin: 06/18/18 15:02 Dose: 100 mls/hr Ibuprofen (Motrin) 600 mg PO Q6HR PRN PRN Reason: Pain (Moderate) Stop: 08/15/18 05:31 Lorazepam (Ativan) 1 mg IM Q4HR PRN; Protocol PRN Reason: Agitation Stop: 08/15/18 12:55 Last Admin: 06/18/18 15:26 Dose: 1 mg General: weak, other (confused) HEENT: NC/AT Neck: Supple Lungs: CTAB Cardiovascular: RRR, Normal S1, Normal S2 Abdomen: soft, non-tender Extremities: clear Neurological: no change Internal Medicine Assmt/Plan - Assessment Assessment: acute uti with r hydropnephrosis copd - Plan Plan: continue ivabx as per id am labs continue current plan of care
--- NOTE | 2018-06-19 00:59 | Progress Notes ---
DATE: 06/18/2018 SUBJECTIVE: The patient remains confused, weak, and denies any dysuria or hematuria. PHYSICAL EXAMINATION: VITAL SIGNS: Temperature is 98.9, heart rate 99, and blood pressure 136/80. He has not had fever in the hospital. ABDOMEN: Soft, nondistended, and nontender. EXTREMITIES: No edema. HEART AND LUNG: Sounds unremarkable. LABORATORY DATA: No blood was drawn today or reported and blood cultures preliminary have no growth and urine culture is also no growth. IMPRESSION: 1. History of hematuria and bladder cancer, possibly bladder tumor and right hydronephrosis. Awaiting clearance and consent for cystoscopy, retrograde pyelogram, and possible bladder tumor resection. 2. Significant altered level of consciousness, possibly psychiatric disorder. No major change remains a risk factor for any surgery. JOB# [id number]
[2018-06-19 06:27] LABS: % BASOPHILS 0.7 % (0.0-2.0); % EOSINOPHILS 1.8 % (0.0-5.0); % MONOCYTES 12.5 % (2.0-10.0); BASOPHILE ABSOLUTE 0.1 Th/cumm (0-0.2); EOSINOPHILE ABSOLUTE 0.2 Th/cmm (0.1-0.4); HEMATOCRIT 43.2 % (41.0-60); HEMOGLOBIN 14.5 gm/dL (12-16); LYMPHOCYTE ABSOLUTE 0.9 Th/cmm (1.5-3.0); MEAN CELL VOLUME 91.4 fl (80-99); MEAN CORPUSCULAR HEMOGLOBIN 30.6 pg (27.0-31.0); MEAN CORPUSCULAR HGB CONC 33.5 pg (28.0-36.0); MEAN PLATELET VOLUME 7.2 fl; MONOCYTE ABSOLUTE 1.1 Th/cmm (0.3-1.0); NEUTROPHILE ABSOLUTE 6.5 Th/cmm (1.8-8.0); PLATELET COUNT 215 Th/cmm (150-400); RED BLOOD COUNT 4.73 Mil/cmm (3.80-5.80); RED CELL DISTRIBUTION WIDTH 13.1 % (11.5-20.0); WHITE BLOOD COUNT 8.8 Th/cmm (4.8-10.8)
[2018-06-19 06:53] LABS: ANION GAP 9.9 (7.0-16.0); BUN - UREA NITROGEN 26 mg/dL (7-25); CALCIUM SERUM 9.5 mg/dL (8.6-10.3); CARBON DIOXIDE 25.8 mEq/L (21.0-31.0); CHLORIDE 108 mEq/L (98-107); CREATININE - SERUM 1.1 mg/dL (0.7-1.3); GFR AFRICAN-AMERICAN > 60.0 ml/min (>90); GFR NON AFRICAN-AMERICAN > 60.0 ml/min; GLUCOSE 105 mg/dL (70-105); POTASSIUM SERUM 3.7 mEq/L (3.5-5.1); SODIUM SERUM 140 mEq/L (136-145)
[2018-06-19] MEDS: cefTRIAXone 1 GM in Sodium Chloride 0.9% 50 ML IV SCH (15:01)
--- NOTE | 2018-06-19 15:52 | Internal Medicine Prog Note ---
Internal Medicine Subjective - Subjective Patient seen and examined:: chart reviewed Patient is:: awake, confused, other (weak admmitted with failure to thrive, weight loss, hematuria ) Patient Complaints of:: other (weakness) Per staff patient has:: no adverse event Internal Medicine Objective - Results Result Diagrams: 06/19/18 06:00 06/19/18 06:00 Recent Labs: Laboratory Last Values WBC 8.8 Th/cmm (4.8-10.8) 06/19/18 06:00 RBC 4.73 Mil/cmm (3.80-5.80) 06/19/18 06:00 Hgb 14.5 gm/dL (12-16) 06/19/18 06:00 Hct 43.2 % (41.0-60) 06/19/18 06:00 MCV 91.4 fl (80-99) 06/19/18 06:00 MCH 30.6 pg (27.0-31.0) 06/19/18 06:00 MCHC Differential 33.5 pg (28.0-36.0) 06/19/18 06:00 RDW 13.1 % (11.5-20.0) 06/19/18 06:00 Plt Count 215 Th/cmm (150-400) 06/19/18 06:00 MPV 7.2 fl 06/19/18 06:00 Neutrophils % 75.0 % (40.0-80.0) 06/19/18 06:00 Lymphocytes % 10.0 % (20.0-50.0) L 06/19/18 06:00 Monocytes % 12.5 % (2.0-10.0) H 06/19/18 06:00 Eosinophils % 1.8 % (0.0-5.0) 06/19/18 06:00 Basophils % 0.7 % (0.0-2.0) 06/19/18 06:00 PT 9.8 SECONDS (9.5-11.5) 06/15/18 15:40 INR 0.94 (0.5-1.4) 06/15/18 15:40 PTT (Actin FS) 27.9 SECONDS (26.0-38.0) 06/15/18 15:40 Sodium 140 mEq/L (136-145) 06/19/18 06:00 Potassium 3.7 mEq/L (3.5-5.1) 06/19/18 06:00 Chloride 108 mEq/L (98-107) H 06/19/18 06:00 Carbon Dioxide 25.8 mEq/L (21.0-31.0) 06/19/18 06:00 Anion Gap 9.9 (7.0-16.0) 06/19/18 06:00 BUN 26 mg/dL (7-25) H 06/19/18 06:00 Creatinine 1.1 mg/dL (0.7-1.3) 06/19/18 06:00 Est GFR ( Amer) > 60.0 ml/min (>90) 06/19/18 06:00 Est GFR (Non-Af Amer) > 60.0 ml/min 06/19/18 06:00 BUN/Creatinine Ratio 23.6 06/19/18 06:00 Glucose 105 mg/dL (70-105) 06/19/18 06:00 Whole Bld Lactic Acid 0.59 mmol/L (0.60-1.99) L 06/15/18 15:40 Calcium 9.5 mg/dL (8.6-10.3) 06/19/18 06:00 Total Bilirubin 1.1 mg/dL (0.3-1.0) H 06/17/18 05:40 AST 17 U/L (13-39) 06/17/18 05:40 ALT 10 U/L (7-52) 06/17/18 05:40 Alkaline Phosphatase 73 U/L (34-104) 06/17/18 05:40 Troponin I < 0.01 ng/mL (0.01-0.05) L 06/15/18 15:40 Total Protein 7.5 gm/dL (6.0-8.3) 06/17/18 05:40 Albumin 4.0 gm/dL (4.2-5.5) L 06/17/18 05:40 Globulin 3.5 gm/dL 06/17/18 05:40 Albumin/Globulin Ratio 1.1 (1.0-1.8) 06/17/18 05:40 TSH 1.58 uIU/ml (0.34-5.60) 06/15/18 15:40 Urine Source CLEAN C 06/15/18 16:00 Urine Color RED 06/15/18 16:00 Urine Clarity HAZY (CLEAR) 06/15/18 16:00 Urine pH 6.5 (4.6 - 8.0) 06/15/18 16:00 Ur Specific [place] <= 1.005 (1.005-1.030) 06/15/18 16:00 Urine Protein 100 mg/dL (NEGATIVE) H 06/15/18 16:00 Urine Glucose (UA) NEGATIVE mg/dL (NEGATIVE) 06/15/18 16:00 Urine Ketones NEGATIVE mg/dL (NEGATIVE) 06/15/18 16:00 Urine Blood LARGE (NEGATIVE) H 06/15/18 16:00 Urine Nitrate NEGATIVE (NEGATIVE) 06/15/18 16:00 Urine Bilirubin NEGATIVE (NEGATIVE) 06/15/18 16:00 Urine Urobilinogen 0.2 E.U./dL (0.2 - 1.0) 06/15/18 16:00 Ur Leukocyte Esterase TRACE (NEGATIVE) H 06/15/18 16:00 Urine RBC 2-5 /hpf (0-5) H 06/15/18 16:00 Urine WBC 50-100 /hpf (0-5) H 06/15/18 16:00 Ur Epithelial Cells NONE SEEN /lpf (FEW) 06/15/18 16:00 Urine Bacteria MODERATE /hpf (NONE SEEN) H 06/15/18 16:00 - Physical Exam Vitals and I&O: Vital Signs Temp 97.7 F 06/19/18 11:31 Pulse 69 06/19/18 11:31 Resp 20 06/19/18 11:31 BP 129/69 06/19/18 11:31 Pulse Ox 96 06/19/18 11:31 Intake & Output 06/18/18 06/19/18 06/19/18 18:59 06:59 18:59 Intake Total 464.167 50 Balance 464.167 50 Weight (lbs) 79.379 kg Intake: Intake, IV Amount 464.167 D5-0.45NS 1,000 ml @ 50 414.167 mls/hr IV .Q20H [facility] Rx#: [id number] cefTRIAXone 1 gm In 50 Sodium Chloride 0.9% 50 ml @ 100 mls/hr IV Q24HR [facility] Rx#:[id number] Oral 50 Other: # Voids 4 # Bowel Movements 0 Weight Source Bedscale Active Medications: Current Medications Dextrose/Sodium Chloride (D5-0.45ns) 1,000 mls @ 50 mls/hr IV .Q20H [facility] Stop: 08/14/18 22:17 Last Admin: 06/18/18 14:39 Dose: 50 mls/hr Ceftriaxone Sodium 1 gm/ (Sodium Chloride) 50 mls @ 100 mls/hr IV Q24HR [facility] Stop: 08/15/18 14:59 Last Admin: 06/19/18 15:01 Dose: 100 mls/hr Ibuprofen (Motrin) 600 mg PO Q6HR PRN PRN Reason: Pain (Moderate) Stop: 08/15/18 05:31 Last Admin: 06/19/18 10:20 Dose: 600 mg Lorazepam (Ativan) 1 mg IM Q4HR PRN; Protocol PRN Reason: Agitation Stop: 08/15/18 12:55 Last Admin: 06/18/18 15:26 Dose: 1 mg General: weak, other (confused) HEENT: NC/AT Neck: Supple Lungs: CTAB Cardiovascular: RRR, Normal S1, Normal S2 Abdomen: soft, non-tender Extremities: clear Neurological: no change Internal Medicine Assmt/Plan - Assessment Assessment: encephalopathy confusion hematuria h/o bladder ca h/o dementia h/o asthma h/o copd - Plan Plan: iv antibiotics neuro eval as per Urology, awaiting cystoscopy, retograde pyelogram, possible bladder tumor resection as per order sheet
[2018-06-19] MEDS: D5-0.45NS 1,000 ML IV SCH (17:08)
--- NOTE | 2018-06-20 05:42 | Progress Notes ---
DATE: 06/19/2018 SUBJECTIVE: The patient remains confused, less combative and is requiring a sitter. Hematuria persists off and on. OBJECTIVE: VITAL SIGNS: On exam, temperature 98.1, heart rate 89, blood pressure 125/58. ABDOMEN: Soft and nondistended. Flanks nontender. EXTREMITIES: No edema. HEART: Sounds normal. LABORATORY DATA: White count 8.8, hemoglobin 14.5. Sodium 140, potassium 3.7, BUN 26, creatinine 1.1. IMPRESSION: 1. Hematuria with history of bladder tumor. We had planned to do a cystoscopy. I discussed this condition with his sister, Neda who is the power of workers compensation defense attorney. She filled me with details about his condition that involves an inoperable bladder cancer or high grade bladder cancer that has been diagnosed and the family and his caregivers and involved people have decided that they should not proceed with any kind of surgical intervention and allow nature to take its course essentially deciding on DNR status or comfort care. With this information, I proceeded to cancel the procedure that was scheduled for tomorrow. I have also informed his other physicians to make a note including the nurses so that we do not subject the patient to unnecessary tests and treatments since the decision has already been made for comfort care. 2. Altered level of consciousness, confusion, and psychiatric disorder with no change remains major risk factor in providing any invasive and aggressive treatment. JOB# [id number]
[2018-06-20 06:48] LABS: % BASOPHILS 0.9 % (0.0-2.0); % EOSINOPHILS 6.7 % (0.0-5.0); % LYMPHOCYTES 14.7 % (20.0-50.0); % MONOCYTES 12.5 % (2.0-10.0); % NEUTROPHILS 65.2 % (40.0-80.0); BASOPHILE ABSOLUTE 0.1 Th/cumm (0-0.2); EOSINOPHILE ABSOLUTE 0.4 Th/cmm (0.1-0.4); HEMOGLOBIN 12.9 gm/dL (12-16); LYMPHOCYTE ABSOLUTE 0.8 Th/cmm (1.5-3.0); MEAN CELL VOLUME 91.4 fl (80-99); MEAN CORPUSCULAR HEMOGLOBIN 30.9 pg (27.0-31.0); MEAN CORPUSCULAR HGB CONC 33.7 pg (28.0-36.0); MEAN PLATELET VOLUME 7.6 fl; MONOCYTE ABSOLUTE 0.7 Th/cmm (0.3-1.0); NEUTROPHILE ABSOLUTE 3.6 Th/cmm (1.8-8.0); PLATELET COUNT 228 Th/cmm (150-400); RED BLOOD COUNT 4.18 Mil/cmm (3.80-5.80); RED CELL DISTRIBUTION WIDTH 12.8 % (11.5-20.0); WHITE BLOOD COUNT 5.6 Th/cmm (4.8-10.8)
[2018-06-20 06:53] LABS: ALB/GLOB RATIO 1.1 (1.0-1.8); ALBUMIN 3.1 gm/dL (4.2-5.5); ALKALINE PHOSPHATASE 49 U/L (34-104); ANION GAP 10.9 (7.0-16.0); BILIRUBIN,TOTAL 0.9 mg/dL (0.3-1.0); BUN - UREA NITROGEN 30 mg/dL (7-25); CALCIUM SERUM 8.9 mg/dL (8.6-10.3); CARBON DIOXIDE 22.7 mEq/L (21.0-31.0); CHLORIDE 110 mEq/L (98-107); CREATININE - SERUM 1.2 mg/dL (0.7-1.3); GFR AFRICAN-AMERICAN > 60.0 ml/min (>90); GFR NON AFRICAN-AMERICAN > 60.0 ml/min; GLUCOSE 107 mg/dL (70-105); POTASSIUM SERUM 3.6 mEq/L (3.5-5.1); SGOT 14 U/L (13-39); SGPT/ALT 13 U/L (7-52); SODIUM SERUM 140 mEq/L (136-145)
[2018-06-20 07:08] LABS: HEMATOCRIT 38.2 % (41.0-60)
--- NOTE | 2018-06-20 10:56 | Infectious Disease Prog Note ---
Infectious Disease Subjective - Review of Systems Service Date: 06/20/18 Subjective: doing well. Infectious Disease Objective - Results Result Diagrams: 06/20/18 05:45 06/20/18 05:45 Recent Labs: Laboratory Last Values WBC 5.6 Th/cmm (4.8-10.8) 06/20/18 05:45 RBC 4.18 Mil/cmm (3.80-5.80) 06/20/18 05:45 Hgb 12.9 gm/dL (12-16) 06/20/18 05:45 Hct 38.2 % (41.0-60) L D 06/20/18 05:45 MCV 91.4 fl (80-99) 06/20/18 05:45 MCH 30.9 pg (27.0-31.0) 06/20/18 05:45 MCHC Differential 33.7 pg (28.0-36.0) 06/20/18 05:45 RDW 12.8 % (11.5-20.0) 06/20/18 05:45 Plt Count 228 Th/cmm (150-400) 06/20/18 05:45 MPV 7.6 fl 06/20/18 05:45 Neutrophils % 65.2 % (40.0-80.0) 06/20/18 05:45 Lymphocytes % 14.7 % (20.0-50.0) L 06/20/18 05:45 Monocytes % 12.5 % (2.0-10.0) H 06/20/18 05:45 Eosinophils % 6.7 % (0.0-5.0) H 06/20/18 05:45 Basophils % 0.9 % (0.0-2.0) 06/20/18 05:45 PT 9.8 SECONDS (9.5-11.5) 06/15/18 15:40 INR 0.94 (0.5-1.4) 06/15/18 15:40 PTT (Actin FS) 27.9 SECONDS (26.0-38.0) 06/15/18 15:40 Sodium 140 mEq/L (136-145) 06/20/18 05:45 Potassium 3.6 mEq/L (3.5-5.1) 06/20/18 05:45 Chloride 110 mEq/L (98-107) H 06/20/18 05:45 Carbon Dioxide 22.7 mEq/L (21.0-31.0) 06/20/18 05:45 Anion Gap 10.9 (7.0-16.0) 06/20/18 05:45 BUN 30 mg/dL (7-25) H 06/20/18 05:45 Creatinine 1.2 mg/dL (0.7-1.3) 06/20/18 05:45 Est GFR ( Amer) > 60.0 ml/min (>90) 06/20/18 05:45 Est GFR (Non-Af Amer) > 60.0 ml/min 06/20/18 05:45 BUN/Creatinine Ratio 25.0 06/20/18 05:45 Glucose 107 mg/dL (70-105) H 06/20/18 05:45 Whole Bld Lactic Acid 0.59 mmol/L (0.60-1.99) L 06/15/18 15:40 Calcium 8.9 mg/dL (8.6-10.3) 06/20/18 05:45 Total Bilirubin 0.9 mg/dL (0.3-1.0) 06/20/18 05:45 AST 14 U/L (13-39) 06/20/18 05:45 ALT 13 U/L (7-52) 06/20/18 05:45 Alkaline Phosphatase 49 U/L (34-104) 06/20/18 05:45 Troponin I < 0.01 ng/mL (0.01-0.05) L 06/15/18 15:40 Total Protein 6.0 gm/dL (6.0-8.3) 06/20/18 05:45 Albumin 3.1 gm/dL (4.2-5.5) L 06/20/18 05:45 Globulin 2.9 gm/dL 06/20/18 05:45 Albumin/Globulin Ratio 1.1 (1.0-1.8) 06/20/18 05:45 TSH 1.58 uIU/ml (0.34-5.60) 06/15/18 15:40 Urine Source CLEAN C 06/15/18 16:00 Urine Color RED 06/15/18 16:00 Urine Clarity HAZY (CLEAR) 06/15/18 16:00 Urine pH 6.5 (4.6 - 8.0) 06/15/18 16:00 Ur Specific [place] <= 1.005 (1.005-1.030) 06/15/18 16:00 Urine Protein 100 mg/dL (NEGATIVE) H 06/15/18 16:00 Urine Glucose (UA) NEGATIVE mg/dL (NEGATIVE) 06/15/18 16:00 Urine Ketones NEGATIVE mg/dL (NEGATIVE) 06/15/18 16:00 Urine Blood LARGE (NEGATIVE) H 06/15/18 16:00 Urine Nitrate NEGATIVE (NEGATIVE) 06/15/18 16:00 Urine Bilirubin NEGATIVE (NEGATIVE) 06/15/18 16:00 Urine Urobilinogen 0.2 E.U./dL (0.2 - 1.0) 06/15/18 16:00 Ur Leukocyte Esterase TRACE (NEGATIVE) H 06/15/18 16:00 Urine RBC 2-5 /hpf (0-5) H 06/15/18 16:00 Urine WBC 50-100 /hpf (0-5) H 06/15/18 16:00 Ur Epithelial Cells NONE SEEN /lpf (FEW) 06/15/18 16:00 Urine Bacteria MODERATE /hpf (NONE SEEN) H 06/15/18 16:00 - Physical Exam Vitals and I&O: Vital Signs Temp 97.5 F 06/20/18 08:00 Pulse 69 06/20/18 08:00 Resp 16 06/20/18 08:00 BP 115/68 06/20/18 08:00 Pulse Ox 95 06/20/18 08:00 Intake & Output 06/19/18 06/20/18 06/20/18 18:59 06:59 18:59 Intake Total 1050 100 Balance 1050 100 Weight (lbs) 79.379 kg Intake: Intake, IV Amount 1050 D5-0.45NS 1,000 ml @ 50 1000 mls/hr IV .Q20H [facility] Rx#: [id number] cefTRIAXone 1 gm In 50 Sodium Chloride 0.9% 50 ml @ 100 mls/hr IV Q24HR [facility] Rx#:[id number] Oral 100 Other: # Voids 4 # Bowel Movements 0 Weight Source Bedscale Active Medications: Current Medications Dextrose/Sodium Chloride (D5-0.45ns) 1,000 mls @ 50 mls/hr IV .Q20H [facility] Stop: 08/14/18 22:17 Last Admin: 06/19/18 17:08 Dose: 50 mls/hr Ceftriaxone Sodium 1 gm/ (Sodium Chloride) 50 mls @ 100 mls/hr IV Q24HR [facility] Stop: 08/15/18 14:59 Last Infusion: 06/19/18 15:31 Dose: Infused Ibuprofen (Motrin) 600 mg PO Q6HR PRN PRN Reason: Pain (Moderate) Stop: 08/15/18 05:31 Last Admin: 06/19/18 20:52 Dose: 600 mg Lorazepam (Ativan) 1 mg IM Q4HR PRN; Protocol PRN Reason: Agitation Stop: 08/15/18 12:55 Last Admin: 06/19/18 17:07 Dose: 1 mg General: no acute distress, well developed, well nourished HEENT: atraumatic, normocephalic, PERRLA, EOMI Neck: supple, no thyromegaly Cardiovascular: S1S2, regular Lungs: clear to auscultation bilaterally, clear to percussion Abdomen: soft, no tender, no distended, no rebound Extremities: no cyanosis, no clubbing, no edema Neurological: awake, alert, oriented Skin: intact Infectious Disease Assmt/Plan - Assessment Assessment: 1. Urinary tract infection complicated with right sided hydronephrosis. 2. Chronic obstructive pulmonary disease. 3. H/o bladder tumor - Plan Plan: cpm. Abx ceftriaxone,, can be changed to po cipro 250 mg po bid x 7 days. DW case management.
--- NOTE | 2018-06-24 05:17 | Discharge Summary ---
DATE OF DISCHARGE: 06/20/2018 HISTORY AND HOSPITAL COURSE: The patient is admitted for acute encephalopathy, history of bladder cancer, history of dementia, history of hematuria and urinary tract infection, and history of asthma and COPD. The patient was treated, had Urology consulted who felt that there was no need for cystoscopy, we will keep on antibiotics. Asthma was controlled and COPD exacerbation was controlled. The patient felt better and the patient was in stable condition and the patient was discharged to [facility] where I will be following the patient. CONDITION AT TIME OF DISCHARGE: Stable. FINAL DIAGNOSES: Status post hematuria improved, history of bladder cancer, history of chronic obstructive pulmonary disease and asthma. MEDICATIONS: See the reconciliation sheet. [facility]# [id number]
== END 2018-06-20 16:20 | disposition home or self-care (01) | DRG 71 ==
LOC: ER 14:54 → MSI 18:29
PROVIDERS: ADMIT Internal Medicine; ATTEND Internal Medicine
DX: G93.40 Encephalopathy, unspecified (principal); N13.6 Pyonephrosis; J44.1 Chronic obstructive pulmonary disease with (acute) exacerbation; C67.9 Malignant neoplasm of bladder, unspecified; R31.9 Hematuria, unspecified; F03.90 Unspecified dementia, unspecified severity, without behavioral disturbance, psychotic disturbance, mood disturbance, and anxiety; F17.210 Nicotine dependence, cigarettes, uncomplicated; R62.7 Adult failure to thrive
CPT/HCPCS: 36415-UA; 71045-TC; 76770-TC; 80048-TC; 80053-TC; 81001-TC; 83605; 84443-TC; 84484-TC; 85025-TC; 85610-TC; 85730-TC; 87086-90; 93005; 96374; 96375; J0696; J2060; Z7610